=== PATIENT | male | born 1985 | race Caucasian/White ===

== ENCOUNTER 2021-10-28 15:16 | Emergency (ER) | payer OTHER ==
[~2021-10-28] VITALS: Ht 177.8 cm; Wt 117.0 kg
[2021-10-28 15:16] VITALS: BP_SYST 173
--- NOTE | 2021-10-28 15:16 | NUR ---
BROUGHT BACK TO BED #1 AND TRIAGED, REPORT GIVEN TO ANDRE
--- NOTE | 2021-10-28 15:30 | NUR ---
Pt here from home with L thumb lac s/p cutting with a knife. Pain reported to be 1/10. VSS. No active bleeding noted. Pt reporting minimal numbness to upper thumb but positive sensation overall. Pending MD wesley.
--- NOTE | 2021-10-28 15:35 | NUR ---
ER Dr. Briggs at bedside examining patient.
[2021-10-28] MEDS ORDERED: LIDOCAINE 1% 10 MG/ML, 20 ML MDV INJ ONE (16:00)
[2021-10-28] MEDS ORDERED: BACITRACIN 1 GM OINT TP ONE ×2 (16:36→16:45)
--- NOTE | 2021-10-28 16:57 | NUR ---
Patient given written and verbal discharge instructions and verbalizes understanding. ER MD discussed with patient the results and treatment provided. Patient in stable condition. ID arm band removed. Patient educated on pain management and to follow up with PMD. Opportunity for questions provided and answered. Medication side effect fact sheet provided.
== END 2021-10-28 16:57 | disposition home or self-care (01) ==
LOC: SED 15:16
DX: S61.412A Laceration without foreign body of left hand, initial encounter (principal); W26.0XXA Contact with knife, initial encounter; Y93.89 Activity, other specified; Y92.89 Other specified places as the place of occurrence of the external cause; Y99.8 Other external cause status
CPT/HCPCS: 99282